=== PATIENT | female | born 1980 | race Caucasian/White ===

== ENCOUNTER → 2022-06-21 | Outpatient (CLI) | payer OTHER ==
--- NOTE | 2022-06-21 14:58 | XR ---
EXAMINATION TYPE: XR chest 2V DATE OF EXAM: 06/21/2022 2:52 PM COMPARISON: None TECHNIQUE: XR chest 2V Frontal and lateral views of the chest. CLINICAL INDICATION:Female, 41 years old with history of S40.012A S40.022A S50.12XA S202.22A; FINDINGS: Lungs/Pleura: There is no evidence of pleural effusion, focal consolidation, or pneumothorax. Pulmonary vascularity: Unremarkable. Heart/mediastinum: Cardiomediastinal silhouette is unremarkable. Musculoskeletal: No acute osseous pathology. IMPRESSION: No acute cardiopulmonary disease/process.
--- NOTE | 2022-06-21 15:02 | XR ---
EXAMINATION TYPE: XR shoulder complete LT, XR humerus LT, XR forearm LT DATE OF EXAM: 06/21/2022 2:52 PM INDICATION: Patient age:Female; 41 years old; Reason for study: S40.012A S40.022A S50.12XA S202.22A; COMPARISON: None TECHNIQUE: The left shoulder was examined in AP, internally rotated and scapular Y projections. . The left humerus and forearm were examined in frontal and lateral views. FINDINGS: No evidence of acute osseous pathology, joint dislocation, or soft tissue swelling. The remaining por tions of the visualized chest are unremarkable. IMPRESSION: No acute osseous pathology.
== END | disposition home or self-care (01) ==
LOC: RADXRMAIN 14:11
PROVIDERS: ATTEND Emergency Medicine
DX: S40.012A Contusion of left shoulder, initial encounter (principal); S40.022A Contusion of left upper arm, initial encounter; S50.12XA Contusion of left forearm, initial encounter; S20.222A Contusion of left back wall of thorax, initial encounter; X58.XXXA Exposure to other specified factors, initial encounter
CPT/HCPCS: 71046

== ENCOUNTER → 2022-11-07 | Outpatient (CLI) | payer BC ==
[2022-11-07 15:35] VITALS: BP 151/88; PULSE 79; TEMP 98.2; BMI 52.0
--- NOTE | 2022-11-07 16:05 | P.HPBAR ---
Bariatric H&P - History & Physicial H&P Date: 11/07/22 History & Physicial: Visit/CC: new patient Patient initial contact: Initial weight: Initial weight in pounds: Height: 5 ft 4.5 in Initial BMI: Last weight: Current weight: 139.797 kg Current weight in pounds: 308.20 Current BMI: 52.0 [place] body weight (based on NIH guidelines): 55.565 kg Excess body weight loss: The patient is a 42 year-old F who presents for Bariatric Assessment. SHe wants the gastric bypass. Denies heartburn. Mom had weight problems. Aunt had weight problems. Has lower back pain. Has hip pain. No knee pain. Has ankle and feet pain. Has indigestion present. She is on peptobismol. No prior for abdomial . NO colon cancer. Mom had breast cancer and . Dad not sure of cancer. No blood stills. No change in bowel habits. She is on iron pills. NO DVTs or PEs. Has CAD and CKD. No prior sleep apnea and no prior testing. She has hyptertensive disease. Blod work advised. Still has gallbladder. She has fatty food intolerance. She has spicey food introlerance. Past Medical History Past Medical History: Blood Disorder, Hypertension, Rheumatoid Arthritis (RA) Additional Past Medical History / Comment(s): anemia History of Any Multi-Drug Resistant Organisms: None Reported Past Surgical History: Section, Tonsillectomy Additional Past Surgical History / Comment(s): lasik eye surgery Past Anesthesia/Blood Transfusion Reactions: Postoperative Nausea & Vomiting (PONV) Additional Past Anesthesia/Blood Transfusion Reaction / Comm: Vomiting after tonsillectomy Past Psychological History: No Psychological Hx Reported Smoking Status: Never smoker Past Alcohol Use History: Rare Past Drug Use History: None Reported Surgical - Exam Vital Signs Temp Pulse BP 98.2 F 79 151/88 11/07/22 15:28 11/07/22 15:28 11/07/22 15:28 Bariatric Checklist Checklist: Plan: Checklist: EGD: 1. Hiatal hernia: 2. H. Pylori: HgbA1c: Vitamin D: Smoking: Primary care physician referral: Dr. Rowe Psychiatry clearance: Cardiology clearance: Sleep study: Diet journal: VTE risk score: VTE risk level: Rehab needs at discharge:
== END ==
LOC: BARWHC3 14:41
PROVIDERS: ATTEND Surgery Plastic and Reconstructive Surgery
DX: E66.01 Morbid (severe) obesity due to excess calories (principal); I10 Essential (primary) hypertension; M06.9 Rheumatoid arthritis, unspecified; Z68.43 Body mass index [BMI] 50.0-59.9, adult
CPT/HCPCS: 99212

== ENCOUNTER 2022-11-22 08:30 | Day surgery (SDC) | payer BC ==
--- NOTE | 2022-11-22 07:06 | P.GSHP ---
History of Present Illness H&P Date: 11/22/22 CHIEF COMPLAINT: GERD HISTORY OF PRESENT ILLNESS: The patient is a 42-year-old female who presents reports gastroesophageal reflux disease. Upper endoscopy was offered for further evaluation and management. PAST MEDICAL HISTORY: Please see list. PAST SURGICAL HISTORY: Please see list. MEDICATIONS: Please see list. ALLERGIES: Please see list. SOCIAL HISTORY: No illicit drug use FAMILY HISTORY: No reports of Crohn disease or ulcerative colitis. REVIEW OF ORGAN SYSTEMS: CONSTITUTIONAL: No reports of fevers or chills. GI: Denies any blood in stools or constipation. PHYSICAL EXAM: VITAL SIGNS: Stable GENERAL: Well-developed and pleasant in no acute distress. HEENT: No scleral icterus. Extraocular movements grossly intact. Moist buccal mucosa. NECK: Supple without lymphadenopathy. CHEST: Unlabored respirations. Equal bilateral excursions. CARDIOVASCULAR: Regular rate and rhythm. Distal 2+ pulses. ABDOMEN: Soft, nondistended. MUSCULOSKELETAL: No clubbing, cyanosis, or edema. ASSESSMENT: 1. Gastroesophageal reflux disease PLAN: 1. Recommend proceeding with an upper endoscopy Past Medical History Past Medical History: Blood Disorder, GERD/Reflux, Hypertension, Rheumatoid Arthritis (RA) Additional Past Medical History / Comment(s): anemia, seeing hospice chaplain for irreg ekg.pre bariatric surgery History of Any Multi-Drug Resistant Organisms: None Reported Past Surgical History: Section, Tonsillectomy Additional Past Surgical History / Comment(s): lasik eye surgery Past Anesthesia/Blood Transfusion Reactions: Postoperative Nausea & Vomiting (PONV) Additional Past Anesthesia/Blood Transfusion Reaction / Comment(s): Vomiting after tonsillectomy Smoking Status: Never smoker - Past Family History Father Family Medical History: Cancer Mother Family Medical History: Cancer Additional Family Medical History / Comment(s): lung breast Medications and Allergies Home Medications Medication Instructions Recorded Confirmed Type Biotin [Biotin Disolve] 5,000 mcg PO DAILY 11/07/22 11/20/22 History Ferrous Sulfate [Feosol] 325 mg PO DAILY 11/07/22 11/20/22 History L.acidoph,Paracasei, B.lactis 1 each PO DAILY 11/07/22 11/20/22 History [Probiotic] Losartan [Cozaar] 50 mg PO DAILY 11/07/22 11/20/22 History Meloxicam [Mobic] 7.5 mg PO BID PRN 11/07/22 11/20/22 History Selenium 50 mcg PO DAILY 11/07/22 11/20/22 History Ergocalciferol [Vitamin D2 (1250 50,000 unit PO WEEKLY 11/13/22 11/20/22 History Mcg = 10055 Iu)] Allergies Allergy/AdvReac Type Severity Reaction Status Date / Time Sulfa (Sulfonamide Allergy Swelling Verified 11/20/22 10:22 Antibiotics) goat cheese Allergy Unknown Uncoded 11/20/22 10:35 goat milk Allergy Unknown Uncoded 11/20/22 10:35
[~2022-11-22 08:30] MED LIST: LACTATED RINGERS 1,000 ML IV SCH
[2022-11-22 09:01] VITALS: TEMP 97.5
[2022-11-22] MEDS ORDERED: KETAMINE 10 MG/ML 20 ML VIAL ONE (09:42)
[2022-11-22] MEDS ORDERED: GLYCOPYRROLATE 0.2 MG/ML 2 ML VIAL ONE (09:42)
[2022-11-22] MEDS ORDERED: PROPOFOL 10 MG/ML 20 ML VIAL IV ONE (09:42)
[2022-11-22] MEDS ORDERED: LIDOCAINE 2% INJ 20 MG/ML (2 ML VIAL) ONE (09:42)
--- NOTE | 2022-11-22 09:51 | P.PCN ---
Date of Procedure: 11/22/22 Description of Procedure: PREOPERATIVE DIAGNOSIS: Gastroesophageal reflux disease. Morbid obesity. POSTOPERATIVE DIAGNOSIS: Gastroesophageal reflux disease. Morbid obesity. Gastritis. Duodenitis Diaphragmatic hiatal hernia OPERATION: Esophagogastroduodenoscopy with biopsies along antrum. SURGEON: Kary Finch MD ANESTHESIA: MAC. INDICATIONS: The patient is a 42-year-old female who presents with reflux disease. Benefits and risks of the procedure were described. Informed consent was obtained. DESCRIPTION: The patient was brought into the endoscopy suite and laid in the left lateral decubitus position. An Olympus gastroscope was passed along the posterior oropharynx down to the distal esophagus where the squamocolumnar junction was encountered at 36 cm from the incisors. The stomach was entered and no bile reflux was found. Additional findings are listed below. Biopsies with cold for ceps were obtained of the antrum. The first through third portion of the duodenum was examined. Retroflexion of the scope confirmed Hill grade 3 lower esophageal valve. The squamocolumnar junction demonstrated LA grade B erosive esophagitis. The stomach was desufflated. The patient tolerated the procedure well. FINDINGS: Squamocolumnar junction 36 cm from the incisors. Diaphragmatic hiatus at 38 cm. Hiatal hernia, 2 cm Hill grade 2 lower esophageal valve. LA grade B erosive esophagitis. Cold forceps biopsies obtained of duodenum and antrum Active duodenitis RECOMMENDATIONS: Omeprazole 40 mg daily for 2 weeks Upper endoscopy as needed. Plan - Discharge Summary Discharge Rx Participant: No New Discharge Prescriptions: Continue Selenium 50 mcg PO DAILY L.acidoph,Paracasei, B.lactis [Probiotic] 1 each PO DAILY Meloxicam [Mobic] 7.5 mg PO BID PRN PRN Reason: Pain Omeprazole [PriLOSEC] 40 mg PO DAILY #14 cap Ferrous Sulfate [Iron (65 MG Elemental)] 325 mg PO DAILY Losartan [Cozaar] 50 mg PO DAILY Biotin [Biotin Disolve] 5,000 mcg PO DAILY Ergocalciferol [Vitamin D2 (1250 Mcg = 69773 Iu)] 50,000 unit PO WEEKLY Discharge Medication List Biotin [Biotin Disolve] 5,000 mcg PO DAILY 11/07/22 [History] Ferrous Sulfate [Iron (65 MG Elemental)] 325 mg PO DAILY 11/07/22 [History] L.acidoph,Paracasei, B.lactis [Probiotic] 1 each PO DAILY 11/07/22 [History] Losartan [Cozaar] 50 mg PO DAILY 11/07/22 [History] Meloxicam [Mobic] 7.5 mg PO BID PRN 11/07/22 [History] Selenium 50 mcg PO DAILY 11/07/22 [History] Ergocalciferol [Vitamin D2 (1250 Mcg = 04125 Iu)] 50,000 unit PO WEEKLY 11/13/22 [History] Omeprazole [PriLOSEC] 40 mg PO DAILY #14 cap 11/22/22 [Rx] Follow up [facility]ment(s[facility] [facility] [place] [place] [facility] [place] [facility] Patient Instructions/Handouts: Gastritis (DC), GERD (Gastroesophageal Reflux Disease) (DC), Duodenitis (DC) Discharge Disposition: HOME SELF-CARE
[2022-11-22 09:56] VITALS: BP 130/77; PULSE 60; RESP 18
== END 2022-11-22 10:33 | disposition home or self-care (01) ==
LOC: ORWHC2ENDO 08:30
PROVIDERS: ATTEND Surgery Plastic and Reconstructive Surgery
DX: K29.50 Unspecified chronic gastritis without bleeding (principal); K44.9 Diaphragmatic hernia without obstruction or gangrene; K21.00 Gastro-esophageal reflux disease with esophagitis, without bleeding; K29.80 Duodenitis without bleeding; E66.01 Morbid (severe) obesity due to excess calories; I10 Essential (primary) hypertension; M06.9 Rheumatoid arthritis, unspecified; D64.9 Anemia, unspecified; K91.0 Vomiting following gastrointestinal surgery; Z90.89 Acquired absence of other organs; Z98.891 History of uterine scar from previous surgery; Z68.41 Body mass index [BMI] 40.0-44.9, adult; Z80.3 Family history of malignant neoplasm of breast; Z79.899 Other long term (current) drug therapy; Z88.2 Allergy status to sulfonamides; Z91.018 Allergy to other foods
CPT/HCPCS: 81025; 88305; 43239; J2704; J2001

== ENCOUNTER → 2022-12-05 | Outpatient (CLI) | payer BC ==
[2022-12-05 13:29] VITALS: BP 154/95; PULSE 86; TEMP 97.5; BMI 52.9
--- NOTE | 2022-12-05 14:11 | P.BASOAP ---
Subjective Progress Note Date: 12/05/22 She is completed her paper work. She is looking sleeve gastrectomy. She completed cardiac risk assessment. She is looking into the gastric bypass. She has arthritis. She has not taken Mobic. She has peptic ulcer disease without mobic. Options for sleeve reviewed. Plan for procedures. Recovery between bypass and sleeve reviewed. Small hiatal hernia is present and reviewed. Objective - Vital Signs Vital signs: Vital Signs Temp 97.5 F L 12/05/22 13:24 Pulse 86 12/05/22 13:24 Resp BP 154/95 12/05/22 13:24 Pulse Ox FiO2 Intake & Output 12/04/22 12/05/22 12/05/22 18:59 06:59 18:59 Weight 141.974 kg Assessment/Plan Plan: Date: 12/05/22 Initial Weight: Initial BMI: Current Weight: 141.974 kg Current BMI: 52.9 Type of Surgery: Total Volume in Band: Previous Volume: Volume Removed: Volume Added: Band Size:
== END ==
LOC: BARWHC3 13:13
PROVIDERS: ATTEND Surgery Plastic and Reconstructive Surgery
DX: E66.01 Morbid (severe) obesity due to excess calories (principal); Z88.2 Allergy status to sulfonamides; Z91.018 Allergy to other foods; Z91.011 Allergy to milk products; Z68.43 Body mass index [BMI] 50.0-59.9, adult
CPT/HCPCS: 99211

== ENCOUNTER → 2022-12-17 | Outpatient (CLI) | payer BC ==
[2022-12-17 10:57] VITALS: BMI 53.1
== END ==
LOC: BARWHC3 08:35
PROVIDERS: ATTEND Surgery Plastic and Reconstructive Surgery
DX: E66.01 Morbid (severe) obesity due to excess calories (principal); Z71.3 Dietary counseling and surveillance; Z68.43 Body mass index [BMI] 50.0-59.9, adult; Z88.2 Allergy status to sulfonamides; Z91.011 Allergy to milk products
CPT/HCPCS: 97804

== ENCOUNTER → 2023-01-14 | Outpatient (CLI) | payer BC ==
[2023-01-15 02:22] LABS: Basophils # (A) 0.11 X 10*3/uL (0.00-0.10); Basophils % (A) 0.9 %; Eosinophils # (A) 0.28 X 10*3/uL (0.04-0.35); Eosinophils % (A) 2.3 %; Lymphocytes # (A) 2.86 X 10*3/uL (0.90-5.00); Lymphocytes % (A) 23.7 %; MCH 28.1 pg (27.0-32.0); MCV 90.7 FL (80.0-97.0); Monocytes # (A) 0.72 X 10*3/uL (0.20-1.00); NRBC Per 100 WBC 0 X 10*3/uL (0.00-0.01); Neutrophils # (A) 8.02 X 10*3/uL (1.80-7.70); Neutrophils % (A) 66.6 %; Platelet Count 292 X 10*3/uL (140-440); RBC 4.63 X 10*6/uL (4.10-5.20); RDW 13.8 % (11.5-14.5); WBC 12.05 X 10*3/uL (4.50-10.00)
[2023-01-15 02:32] LABS: ALT 16 U/L (8-44); AST 16 U/L (13-35); Albumin 4.3 d/dL (3.8-4.9); Albumin/Globulin Ratio 1.48 Ratio (1.60-3.17); Alkaline Phosphatase 85 U/L (41-126); BUN/Creat Ratio 25.86 Ratio (12.00-20.00); Blood Urea Nitrogen 18.1 mg/dL (9.0-27.0); Calcium 10.1 mg/dL (8.7-10.3); Carbon Dioxide 24.9 mmol/L (21.6-31.8); Chloride 102 mmol/L (96-109); Globulin 2.9 d/dL (1.6-3.3); Glucose 86 mg/dL (70-110); Potassium 4.4 mmol/L (3.5-5.5); Sodium 140 mmol/L (135-145); Total Bilirubin 0.3 mg/dL (0.3-1.2); Total Protein 7.2 d/dL (6.2-8.2)
== END | disposition home or self-care (01) ==
LOC: LABPAT 16:20
PROVIDERS: ATTEND Surgery Plastic and Reconstructive Surgery
DX: Z01.812 Encounter for preprocedural laboratory examination (principal)
CPT/HCPCS: 80053; 85025

== ENCOUNTER → 2023-04-08 | Outpatient (CLI) | payer BC ==
[2023-04-08 21:27] LABS: ALT 12 U/L (8-44); AST 14 U/L (13-35); Albumin 4.3 d/dL (3.8-4.9); Albumin/Globulin Ratio 1.54 Ratio (1.60-3.17); Alkaline Phosphatase 76 U/L (41-126); Blood Urea Nitrogen 16.8 mg/dL (9.0-27.0); Calcium 10.1 mg/dL (8.7-10.3); Carbon Dioxide 27.1 mmol/L (21.6-31.8); Chloride 102 mmol/L (96-109); Globulin 2.8 d/dL (1.6-3.3); Glucose 91 mg/dL (70-110); Potassium 4.1 mmol/L (3.5-5.5); Sodium 140 mmol/L (135-145); Total Bilirubin 0.3 mg/dL (0.3-1.2); Total Protein 7.1 d/dL (6.2-8.2)
[2023-04-08 22:27] LABS: Eosinophils # (A) 0.24 X 10*3/uL (0.04-0.35); Eosinophils % (A) 2.3 %; HCT 43.7 % (37.2-46.3); HGB 13.7 d/dL (12.0-15.0); Lymphocytes # (A) 2.57 X 10*3/uL (0.90-5.00); Lymphocytes % (A) 25.1 %; MCHC 31.4 d/dL (32.0-37.0); MCV 89.4 FL (80.0-97.0); Mean Platelet Volume 10.3 FL (9.5-12.2); Monocytes # (A) 0.68 X 10*3/uL (0.20-1.00); Monocytes % (A) 6.6 %; NRBC Per 100 WBC 0 X 10*3/uL (0.00-0.01); Neutrophils # (A) 6.61 X 10*3/uL (1.80-7.70); Neutrophils % (A) 64.5 %; Platelet Count 285 X 10*3/uL (140-440); RBC 4.89 X 10*6/uL (4.10-5.20); WBC 10.25 X 10*3/uL (4.50-10.00)
== END | disposition home or self-care (01) ==
LOC: LABPAT 13:54
PROVIDERS: ATTEND Surgery Plastic and Reconstructive Surgery
DX: Z01.812 Encounter for preprocedural laboratory examination (principal)
CPT/HCPCS: 36415; 80053; 85025; 86850; 86900; 86901

== ENCOUNTER 2023-04-15 09:52 | Day surgery (SDC) | payer BC ==
[2023-04-09 09:27] VITALS: BMI 51.2
--- NOTE | 2023-04-15 08:23 | P.GSHP ---
History of Present Illness H&P Date: 04/15/23 CHIEF COMPLAINT: Morbid obesity HISTORY OF PRESENT ILLNESS: Bushra Ablright is a 42-year-old female who comes with lifelong morbid obesity. As result of morbid obesity, she has developed , osteoarthritis of the hips and knees. She has completed medical supervised weight loss. She completed medical assessment. She has completed psychological risk assessment. All surgical options were reviewed. She elected for sleeve gastrectomy. At height of 5 feet 5 inches, her ideal body weight is 149 pounds. She comes in 307 pounds. Her body mass index is 51.3. She is 158 pounds overweight. PAST MEDICAL HISTORY: 1. Morbid obesity due to excess calories 2. Body mass index of 51.3 3. Osteoarthritis of the knees. 4. Osteoarthritis of the lower back. PAST SURGICAL HISTORY: See list and reviewed HOME MEDICATIONS: See list and reviewed ALLERGIES: See list and reviewed SOCIAL HISTORY: See list and reviewed FAMILY HISTORY: No family history of ulcerative colitis disease or Crohn's disease. Family history of morbid obesity. No lupus in the family. No reports of stomach or esophageal cancer. REVIEW OF ORGAN SYSTEMS: CONSTITUTIONAL:At height of 5 feet 5 inches, her ideal body weight is 149 pounds. She comes in 307 pounds. Her body mass index is 51.3. She is 158 pounds overweight. HEENT: Denies any active troubles with vision or hearing. ENDOCRINE: Has diabetes. Has hypothyroidism. CARDIOVASCULAR: Past reports of palpitations or heart attacks or chest pain. RESPIRATORY: Has daytime somnolence. GASTROINTESTINAL: Denies any bright red blood per rectum. Has gastroesophageal reflux disease. MUSCULOSKELETAL: Has lower back pain and joint pain. Has osteoarthritis of the knees. NEURO: No headaches. No seizure disorders. PSYCH: Has depression. No suicidal ideation. RHEUMATOLOGIC: No lupus. No rheumatoid arthritis. HEMATOLOGIC: Denies any abnormal bleeding or bruising. No personal history of DVTs. SKIN: Has rash. No skin cancer. PHYSICAL EXAM: VITAL SIGNS: Height 5 foot 5 inches, weight 307 pounds. BMI 51.3 GENERAL: Well-developed in no acute distress. HEENT: No scleral icterus. Extraocular movements grossly intact. Hears conversational speech. No nasal drainage. NECK: Supple without lymphadenopathy. CHEST: Nonlabored respirations with equal bilateral excursions. CARDIOVASCULAR: Regular rate and regular rhythm. Distal 2+ pulses. ABDOMEN: Obese, soft, nontender, nondistended. MUSCULOSKELETAL: No clubbing, cyanosis. NEURO: No focal or lateralizing signs. Cranial nerves 2 through 12 grossly within normal limits. PSYCH: Appropriate affect. Alert and oriented to person, place and time. SKIN: Good skin turgor. Well perfused. ASSESSMENT: 1. Morbid obesity due to excess calories 2. Body mass index of 51.3 3. Osteoarthritis of the knees. 4. Osteoarthritis of the lower back. PLAN: 1. Bariatric options between a sleeve, band and a Alida-en-Y gastric bypass were reviewed in detail. The patient elected for a sleeve gastrectomy. Robotic assisted approach described. 2. The [place] [facility] Data was also reviewed with benefits and risks as described. 3. An 8 page second-generation bariatric consent form was reviewed in detail including potential of bleeding, infection, leaks, adequate weight loss, nutritional deficiencies which the patient demonstrated understanding of the risks. 4. A 2 week high-protein low caloric 800 kcal diet described to address hepatomegaly. 5. Preoperative labs including complete metabolic panel and CBC with type and screen recommended. 6. DVT prophylaxis per [place] [facility] collaborative. 7. Antibiotic prophylaxis. 8. Inpatient hospitalization anticipated for more than 2 nights. 9. All questions and concerns were addressed with the patient. 10. She is at elevated risk for perioperative complications with body mass index of 50 11. Overall, patient has expressed understanding of bariatric care including postoperative diet and commitment of lifestyle. Patient should benefit from surgical intervention for correction of her morbid obesity. Past Medical History Past Medical History: Blood Disorder, GERD/Reflux, Hypertension, Rheumatoid Arthritis (RA) Additional Past Medical History / Comment(s): anemia, History of Any Multi-Drug Resistant Organisms: None Reported Past Surgical History: Section, Tonsillectomy Additional Past Surgical History / Comment(s): lasik eye surgery, EGD Past Anesthesia/Blood Transfusion Reactions: Postoperative Nausea & Vomiting (PONV) Additional Past Anesthesia/Blood Transfusion Reaction / Comment(s): Vomiting after tonsillectomy Smoking Status: Never smoker - Past Family History Father Family Medical History: Cancer Mother Family Medical History: Cancer Additional Family Medical History / Comment(s): lung breast Medications and Allergies Home Medications Medication Instructions Recorded Confirmed Type Biotin [Biotin Disolve] 5,000 mcg PO DAILY 11/07/22 04/09/23 History Ferrous Sulfate [Iron (65 MG 325 mg PO DAILY 11/07/22 04/09/23 History Elemental)] L.acidoph,Paracasei, B.lactis 1 each PO DAILY 11/07/22 04/09/23 History [Probiotic] Ergocalciferol [Vitamin D2 (1250 50,000 unit PO WE 11/13/22 04/09/23 History Mcg = 68142 Iu)] Metoprolol Tartrate 25 mg PO DAILY 12/05/22 04/09/23 History Allergies Allergy/AdvReac Type Severity Reaction Status Date / Time Sulfa (Sulfonamide Allergy Swelling Verified 04/09/23 09:05 Antibiotics) goat cheese Allergy Anaphylaxis Uncoded 04/09/23 09:05 goat milk Allergy Anaphylaxis Uncoded 04/09/23 09:05
[~2023-04-15 09:52] MED LIST changes: +ACETAMINOPHEN TAB 500 MG TAB PO PRN; +ALVIMOPAN 12 MG CAPSULE PO PRN; +CHLORHEXIDINE GLUCONATE 15 ML CUP MUCOUS MEM PRN; +DEXAMETHASONE SOD PHOSPHATE 4 MG/ML 1 ML VIAL IV ONE; +ENOXAPARIN 40 MG/0.4 ML SYRINGE SQ PRN; +HYDROmorphone 0.5 MG/0.5 ML SYRINGE IVP PRN; +LIDOCAINE 1% (10MG/ML) FOR IV START INTRADERMA PRN; +METOCLOPRAMIDE 5 MG/ML 2 ML VIAL IVP PRN; +ONDANSETRON 4 MG/2 ML VIAL IVP ONE; +ONDANSETRON 4 MG/2 ML VIAL IVP PRN; +PANTOPRAZOLE 40 MG/10 ML VIAL IVP PRN; +SCOPOLAMINE 1 MG/72 HR PATCH TRANSDERM STA; +ceFAZolin 3 GM in SODIUM CHLORIDE 0.9% 100 ML IVPB PRN; +droPERidol 5 MG/2 ML VIAL IVP ONE
[2023-04-15 10:48] VITALS: RESP 18; TEMP 96.9
--- NOTE | 2023-04-15 11:16 | P.HPADDEND ---
H&P Addendum H&P Addendum Date: 04/15/23 Patient reports less than 10 pound weight loss as described for successful surgery. She only lost 7 pounds. Patient is at risk for severe hepatomegaly. In the presence of severe hepatomegaly, surgery will be discontinued. Benefits and risks discussed with patient. She wished to proceed.
[2023-04-15] MEDS ORDERED: PROPOFOL 10 MG/ML 20 ML VIAL IV ONE (11:30)
[2023-04-15] MEDS ORDERED: KETAMINE HCL IN 0.9 % NACL 50 MG/5 ML SYRINGE ONE (11:30)
[2023-04-15] MEDS ORDERED: ROCURONIUM 10 MG/ML (5 ML VIAL) IV ONE (11:30)
[2023-04-15] MEDS ORDERED: GLYCOPYRROLATE 0.2 MG/ML 2 ML VIAL ONE (11:30)
[2023-04-15] MEDS ORDERED: LIDOCAINE 1% INJ 10MG/ML (20 ML MDV) ONE (11:30)
[2023-04-15] MEDS ORDERED: NEOSTIGMINE 1 MG/ML 10 ML VIAL ONE (11:30)
[2023-04-15] MEDS ORDERED: fentaNYL (PF) 50 MCG/ML 2 ML AMP ONE (11:30)
[2023-04-15] MEDS ORDERED: SUCCINYLCHOLINE CHLORIDE 200 MG/10 ML VIAL IV ONE (11:30)
[2023-04-15] MEDS ORDERED: MIDAZOLAM 2 MG/2 ML VIAL ONE (11:30)
[2023-04-15] MEDS ORDERED: LIDOCAINE 1%-EPI 1:100,000 50 ML VIAL SQ ONE (12:02)
--- NOTE | 2023-04-15 13:01 | P.OP ---
Date of Procedure: 04/15/23 Description of Procedure: SURGEON: LUDWIG APPIAH MD PREOPERATIVE DIAGNOSES: 1. Morbid obesity due to excess calories 2. Body mass index of 51.3 3. Osteoarthritis of the knees. 4. Osteoarthritis of the lower back. POSTOPERATIVE DIAGNOSES: 1. Morbid obesity due to excess calories 2. Body mass index of 51.3 3. Osteoarthritis of the knees. 4. Osteoarthritis of the lower back. 5. Severe hepatomegaly with fatty liver disease OPERATION: 1. Robotic assisted daVinci Xi laparoscopic sleeve gastrectomy ABORTED 2. Diagnostic laparoscopy ANESTHESIA: Gen. local anesthetic ESTIMATED BLOOD LOSS: 0 mL SPECIMENS REMOVED: None COMPLICATIONS: None. FINDINGS: 1. Severe hepatomegaly with fatty liver disease prohibiting procedure for sleeve gastrectomy INDICATIONS: Bushra Albright is a 42-year-old female who comes with lifelong morbid obesity. As result of morbid obesity, she has developed osteoarthritis of the hips and knees. She has completed medical supervised weight loss. She completed medical assessment. She has completed psychological risk assessment. All surgical options were reviewed. She elected for sleeve gastrectomy. At height of 5 feet 5 inches, her ideal body weight is 149 pounds. She comes in 307 pounds. Her body mass index is 51.3. She is 158 pounds overweight. All surgical options for morbid obesity had been described using the [place] [facility]ariat[facility] surgery collaborative comorbidity resolution including complication risk score. A second-generation bariatric consent form was described in detail including the possibility of protein malnutrition, leaks, gastric stricture, venous thrombosis, gastroesophageal reflux disease, need for further surgery for which she demonstrated understanding. Benefits and risks of the procedure were described at length. Informed consent was obtained. Additionally, patient specifically educated to adhere to 2 week high-protein low carb diet to address hepatomegaly with anticipated weight loss over 10 pounds. Patient is aware that noncompliance or persistent hepatomegaly may lead to cancellation of her surgery. Patient had agreed to proceed knowing the risks. DESCRIPTION: The patient was brought into the operating room theater. Preoperatively she had received Lovenox subcutaneously for DVT prophylaxis. Additionally she had Peridex oral solution as an oral decontaminant. After general induction, the abdomen was prepped and draped in standard sterile fashion. An Ioban draping was placed along the abdomen. A robotic da Rolo Xi system was prepped and primed. At 15 cm from the xiphoid, proposed port sites were marked with indelible marker along the anterior axillary line bilaterally, mid axillary line bilaterally with each ports were marked 10 to 15 cm from each other. The robotic stapler port was marked for the right midclavicular line. A 5 mm 0 degrees laparoscopic trocar entry was performed along the left upper quadrant. The abdomen was insufflated to 15 mmHg pressure was tolerated well. Diagnostic laparoscopy demonstrated no injury to bowel, viscera, or mesentery. The liver was large with hepatomegaly including evidence of fatty liver disease. The liver edge was round demonstrating moderate to severe hepatomegaly prohibiting progression of her case. With this finding, case was aborted. The incision was closed using subcuticular interrupted suture of 4-0 Monocryl. Exofin was applied to the skin once the skin had been cleansed. At the end of the procedure, needle, sponge, and instrument count was verified correct by the surgical resident. The patient was taken to the postanesthesia care unit in stable condition. Intraoperative findings were shared with the patient's sister with strict adherence to low carb high-protein diet with anticipated weight loss of additional 23 pounds to address severe hepatomegaly and fatty liver disease. Plan - Discharge Summary Discharge Rx Participant: Yes New Discharge Prescriptions: New Acetaminophen Tab [Tylenol Tab] 1,000 mg PO Q6HR PRN #30 tablet PRN Reason: Pain Continue L.acidoph,Paracasei, B.lactis [Probiotic] 1 each PO DAILY Metoprolol Tartrate 25 mg PO DAILY Ferrous Sulfate [Iron (65 MG Elemental)] 325 mg PO DAILY Biotin [Biotin Disolve] 5,000 mcg PO DAILY Ergocalciferol [Vitamin D2 (1250 Mcg = 26180 Iu)] 50,000 unit PO WE Discharge Medication List Biotin [Biotin Disolve] 5,000 mcg PO DAILY 11/07/22 [History] Ferrous Sulfate [Iron (65 MG Elemental)] 325 mg PO DAILY 11/07/22 [History] L.acidoph,Paracasei, B.lactis [Probiotic] 1 each PO DAILY 11/07/22 [History] Ergocalciferol [Vitamin D2 (1250 Mcg = 00172 Iu)] 50,000 unit PO WE 11/13/22 [History] Metoprolol Tartrate 25 mg PO DAILY 12/05/22 [History] Acetaminophen Tab [Tylenol Tab] 1,000 mg PO Q6HR PRN #30 tablet 04/15/23 [Rx] Follow up Appointment(s)/Referral(s): [facility] [NON-STAFF] - 04/17/23 Patient Instructions/Handouts: *Surgery [facility] - (Anesthesia) Discharge Instructions Outpatient Surgery, *[facility] - Laparoscopy Discharge Instructions Discharge Disposition: HOME SELF-CARE
[2023-04-15 13:23] VITALS: PULSE 70
[2023-04-15 13:39] VITALS: BP 128/74
== END 2023-04-15 13:54 | disposition home or self-care (01) ==
LOC: OR 09:52
PROVIDERS: ATTEND Surgery Plastic and Reconstructive Surgery
DX: E66.01 Morbid (severe) obesity due to excess calories (principal); I10 Essential (primary) hypertension; K21.9 Gastro-esophageal reflux disease without esophagitis; M16.0 Bilateral primary osteoarthritis of hip; M17.0 Bilateral primary osteoarthritis of knee; D64.9 Anemia, unspecified; M06.9 Rheumatoid arthritis, unspecified; K76.0 Fatty (change of) liver, not elsewhere classified; Z68.43 Body mass index [BMI] 50.0-59.9, adult; Z79.899 Other long term (current) drug therapy; Z88.2 Allergy status to sulfonamides; Z91.018 Allergy to other foods; Z91.011 Allergy to milk products
CPT/HCPCS: 43775; S2900; 81025

== ENCOUNTER → 2023-04-17 | Outpatient (CLI) | payer BC ==
[2023-04-17 15:30] VITALS: BP 138/81; PULSE 68; RESP 13; TEMP 97.7; BMI 53.3
--- NOTE | 2023-04-17 16:34 | P.BASOAP ---
Subjective Progress Note Date: 04/17/23 DATE OF SERVICE: 04/17/2023 CHIEF COMPLAINT: Morbid obesity HISTORY OF PRESENT ILLNESS: Bushra Albright is a 42-year-old female who comes with lifelong morbid obesity. As result of morbid obesity, she has developed, osteoarthritis of the hips and knees. She underwent an attempted sleeve gastrectomy however aborted, 04/15/2023 due to severe hepatomegaly with fatty liver disease and noncompliance with diet. Pain is well-controlled. She comes in with weight gain. At height of 5 feet 5 inches, her ideal body weight is 149 pounds. She comes in 315 pounds from 307 pounds in 4 months. She has gained 8 pounds in 4 months. Her body mass index is 53.3. She is 171 pounds overweight. PHYSICAL EXAM: VITAL SIGNS: Height 5 foot 4.5 inches, weight 315 pounds. BMI 53.3 Vital Signs Temp 97.7 F 04/17/23 15:21 Pulse 68 04/17/23 15:21 Resp 13 04/17/23 15:21 BP 138/81 04/17/23 15:21 Pulse Ox FiO2 GENERAL: Well-developed in no acute distress. HEENT: No scleral icterus. Extraocular movements grossly intact. Hears conversational speech. No nasal drainage. NECK: Supple without lymphadenopathy. CHEST: Nonlabored respirations with equal bilateral excursions. CARDIOVASCULAR: Regular rate and regular rhythm. Distal 2+ pulses. ABDOMEN: Obese, soft, nontender, nondistended. Incisions intact MUSCULOSKELETAL: No clubbing, cyanosis. NEURO: No focal or lateralizing signs. Cranial nerves 2 through 12 grossly within normal limits. PSYCH: Appropriate affect. Alert and oriented to person, place and time. SKIN: Good skin turgor. Well perfused. ASSESSMENT: 1. Morbid obesity due to excess calories 2. Body mass index of 51.3 3. Osteoarthritis of the knees. 4. Osteoarthritis of the lower back. 5. Severe hepatomegaly with fatty liver disease PLAN: 1. She has severe fatty liver disease. Plan for 4 week diet. 2. Follow-up in 2 to 3 weeks prior to rescheduling her surgery. Objective - Vital Signs Vital signs: Vital Signs Temp 97.7 F 04/17/23 15:21 Pulse 68 04/17/23 15:21 Resp 13 04/17/23 15:21 BP 138/81 04/17/23 15:21 Pulse Ox FiO2 Intake & Output 04/16/23 04/17/23 04/17/23 18:59 06:59 18:59 Weight 143.108 kg Assessment/Plan Plan: Date: 04/17/23 Initial Weight: Initial BMI: Current Weight: 143.108 kg Current BMI: 53.3 Type of Surgery: Total Volume in Band: Previous Volume: Volume Removed: Volume Added: Band Size:
--- NOTE | 2023-04-19 15:05 | P.PN ---
Progress Note - Text Progress Note Date: 04/19/23 To Whom It May Concern: Bushra Albright is under my general surgical care. She may return to work April 29, 2023 without restrictions. Regards, Kary Finch M.D., FACS
== END ==
LOC: BARWHC3 15:05
PROVIDERS: ATTEND Surgery Plastic and Reconstructive Surgery
DX: E66.01 Morbid (severe) obesity due to excess calories (principal); M51.9 Unspecified thoracic, thoracolumbar and lumbosacral intervertebral disc disorder; M17.0 Bilateral primary osteoarthritis of knee; R16.0 Hepatomegaly, not elsewhere classified; Z71.3 Dietary counseling and surveillance; Z68.43 Body mass index [BMI] 50.0-59.9, adult; Z88.2 Allergy status to sulfonamides; Z91.011 Allergy to milk products
CPT/HCPCS: 97803; 99211